=== PATIENT | female | born 1940 | race Hispanic/Latino ===

== ENCOUNTER 2017-06-27 09:12 | Outpatient (CLI) | payer MEDICARE ==
--- NOTE | 2017-06-27 11:50 | XRay Report ---
XRAY RIGHT KNEE 4 THREE VIEWS: 06/27/17 CLINICAL: Right knee pain. FINDINGS: No fracture or dislocation. Medial joint space narrowing with large osteophytes. Slight widening of the lateral space and chondrocalcinosis of the lateral meniscus. Large patellofemoral osteophytes.No joint effusion.Normal soft tissues. 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
== END 2017-06-27 09:13 | disposition home or self-care (01) ==
LOC: SPVIMAG 09:12
PROVIDERS: ATTEND Orthopaedic Surgery Sports Medicine
DX: M17.11 Unilateral primary osteoarthritis, right knee (principal)

== ENCOUNTER 2017-07-11 11:10 | Outpatient (CLI) | payer MEDICARE ==
--- NOTE | 2017-07-11 14:52 | XRay Report ---
XRAY RIGHT HAND THREE VIEWS: 07/11/17 11:10:00 CLINICAL: Right hand pain. FINDINGS: Severe osteoarthritis involving the basal joint of the thumb and moderate osteoarthritis at the first MCP joint and the IP joint of the thumb. Lesser osteoarthritis at the DIP joints of digits 2 through five. No erosions. The carpal bones are intact. The distal radius and ulna are intact. Mild radiocarpal joint arthritis. Normal soft tissues. IMPRESSION: Osteoarthritis with greater involvement of the thumb.
== END 2017-07-11 11:11 | disposition home or self-care (01) ==
LOC: SPVIMAG 11:10
PROVIDERS: ATTEND Orthopaedic Surgery Sports Medicine
DX: M19.041 Primary osteoarthritis, right hand (principal); M18.9 Osteoarthritis of first carpometacarpal joint, unspecified